=== PATIENT | male | born 1960 | race Caucasian/White ===

== ENCOUNTER 2020-01-30 10:14 | Observation (INO) ==
[2020-01-30 10:41] LABS: Basophils # 0.1 10*3/uL (0.0-0.2); Basophils % 0.4 % (0.0-0.8); Eosinophils % 0.2 % (0.00-10.9); Hematocrit 45.2 VOL% (42.0-52.0); Hemoglobin 15.7 GM/DL (14.0-18.0); Immature Granulocytes % 0.5 %; Immature Granulocytes Absolute 0.08 #; Lymphocytes # 2.6 10*3/uL (1.4-4.0); Lymphocytes % 14.9 % (21.2-54.2); Mean Corpuscular HGB Conc 34.7 GM/DL (32-36); Mean Corpuscular Volume 88.3 FL (87-102); Mean Platelet Volume 9.3 FL (9.6-12.0); Monocytes % 6.5 % (1.7-12.7); Neutrophils % 77.5 % (38.7-73.9); Platelet Count 311 T/CUMM (130-400); Red Blood Count 5.12 MC/CUMM (3.8-5.5); Red Cell Distribution Width 11.9 % (9.3-17.3); White Blood Count 17.2 T/CUMM (4-12)
[2020-01-30] MEDS ORDERED: ENOXAPARIN 100 MG/ML SYRINGE SUBCUT STA (10:44)
[2020-01-30] MEDS ORDERED: ASPIRIN 325 MG TABLET PO STA (10:44)
[2020-01-30] MEDS ORDERED: ENOXAPARIN 120 MG/0.8 ML SYRINGE SUBCUT ONE (10:53)
[2020-01-30 11:06] LABS: Albumin 3.7 G/DL (3.4-5.0); Bilirubin,Total 0.6 MG/DL (0.2-1.0); Calcium 9.7 MG/DL (8.5-10.1); Osmolality,Calculated 283.1 MOS/KG (273-304); Total Protein 7.3 G/DL (6.4-8.3)
[2020-01-30 11:38] LABS: PT Patient Result 10.3 SECS (9.8-11.9)
[2020-01-30] MEDS ORDERED: GLUCAGON 1 MG VIAL IM PRN (11:59)
[2020-01-30] MEDS ORDERED: ONDANSETRON 4 MG/2 ML VIAL IV PRN (11:59)
[2020-01-30] MEDS ORDERED: hydrALAZINE 20 MG/1 ML VIAL IV PRN (11:59)
[2020-01-30] MEDS ORDERED: ACETAMINOPHEN 325 MG TABLET PO PRN (11:59)
[2020-01-30] MEDS ORDERED: DEXTROSE 50% 25 GM/50 ML VIAL IV PRN (11:59)
[2020-01-30] MEDS ORDERED: ENOXAPARIN 40 MG/0.4 ML SYRINGE SUBCUT SCH (12:00)
[2020-01-30 12:37] LABS: Risk Ratio 6.47; Thyroid Stimulating Hormone 0.498 uIU/ml (0.358-3.74)
[2020-01-30] MEDS ORDERED: NICOTINE 21 MG/24 HR PATCH TRANSDERM PRN (13:26)
[2020-01-30] MEDS: KETOROLAC 30 MG/1 ML VIAL IV SCH ×2 (14:44→20:40)
[2020-01-30] MEDS: LIDOCAINE 5% PATCH TRANSDERM SCH (14:48)
[2020-01-30] MEDS: amLODIPine 5 MG TABLET PO SCH (14:48)
[2020-01-30] MEDS: INSULIN LISPRO 100 UNIT/ML SUBCUT SCH ×2 (17:14→21:16)
[2020-01-30] MEDS: GABAPENTIN 100 MG CAPSULE PO SCH ×2 (17:52→20:40)
[2020-01-30] MEDS ORDERED: INSULIN GLARGINE 100 UNIT/ML SUBCUT SCH ×2 (21:00)
[2020-01-31] MEDS: KETOROLAC 30 MG/1 ML VIAL IV SCH (05:08)
[2020-01-31 05:17] LABS: Basophils # 0.1 10*3/uL (0.0-0.2); Basophils % 0.4 % (0.0-0.8); Eosinophils # 0.2 10*3/uL (0.0-0.87); Eosinophils % 1.5 % (0.00-10.9); Hematocrit 39.3 VOL% (42.0-52.0); Immature Granulocytes % 0.6 %; Immature Granulocytes Absolute 0.08 #; Lymphocytes # 3.7 10*3/uL (1.4-4.0); Lymphocytes % 25.9 % (21.2-54.2); Mean Corpuscular HGB Conc 34.6 GM/DL (32-36); Mean Corpuscular Volume 90.8 FL (87-102); Mean Platelet Volume 9.8 FL (9.6-12.0); Monocytes % 7.9 % (1.7-12.7); Neutrophils % 63.7 % (38.7-73.9); Platelet Count 253 T/CUMM (130-400); Red Blood Count 4.33 MC/CUMM (3.8-5.5); Red Cell Distribution Width 12.1 % (9.3-17.3); White Blood Count 14.4 T/CUMM (4-12)
[2020-01-31 05:21] LABS: Hemoglobin 13.6 GM/DL (14.0-18.0)
[2020-01-31 05:40] LABS: Calcium 8.9 MG/DL (8.5-10.1); Osmolality,Calculated 284.2 MOS/KG (273-304)
[2020-01-31 08:42] VITALS: BP 156/75
[2020-01-31] MEDS ORDERED: ATORVASTATIN 40 MG TABLET PO SCH (09:00)
[2020-01-31] MEDS ORDERED: ATORVASTATIN 20 MG TABLET PO SCH (09:00)
[2020-01-31] MEDS ORDERED: PANTOPRAZOLE 40 MG TABLET PO SCH (09:00)
[2020-01-31] MEDS ORDERED: ASPIRIN CHEW 81 MG TABLET PO SCH (09:00)
[2020-01-31] MEDS ORDERED: FLUoxetine 20 MG CAPSULE PO SCH (09:00)
[2020-01-31] MEDS: INSULIN LISPRO 100 UNIT/ML SUBCUT SCH ×2 (09:18→11:51)
[2020-01-31] MEDS: amLODIPine 5 MG TABLET PO SCH (09:20)
[2020-01-31] MEDS: GABAPENTIN 100 MG CAPSULE PO SCH (09:20)
[2020-01-31] MEDS: LIDOCAINE 5% PATCH TRANSDERM SCH (09:21)
[2020-01-31] MEDS ORDERED: ENOXAPARIN 40 MG/0.4 ML SYRINGE SUBCUT SCH (12:00)
== END 2020-01-31 12:05 | disposition home or self-care (01) ==
LOC: N.ED 10:14 → N.EDINP 10:14 → SUATTDRO 11:33 → N.TELES 17:00
PROVIDERS: ADMIT Family Medicine; ATTEND Emergency Medicine

== ENCOUNTER 2021-01-27 12:25 | Observation (INO) ==
[2021-01-27] MEDS ORDERED: PANTOPRAZOLE 40 MG VIAL IV STA (13:07)
[2021-01-27 13:39] LABS: Basophils # 0.1 10*3/uL (0.0-0.2); Basophils % 0.7 % (0.0-0.8); Eosinophils # 0.2 10*3/uL (0.0-0.87); Eosinophils % 2.4 % (0.00-10.9); Hematocrit 31.7 VOL% (42.0-52.0); Hemoglobin 10.3 GM/DL (14.0-18.0); Immature Granulocytes % 0.6 %; Immature Granulocytes Absolute 0.06 #; Lymphocytes # 2.8 10*3/uL (1.4-4.0); Lymphocytes % 28.2 % (21.2-54.2); Mean Corpuscular HGB Conc 32.5 GM/DL (32-36); Mean Corpuscular Volume 92.4 FL (87-102); Mean Platelet Volume 9.3 FL (9.6-12.0); Neutrophils % 61.1 % (38.7-73.9); Platelet Count 304 T/CUMM (130-400); Red Blood Count 3.43 MC/CUMM (3.8-5.5); Red Cell Distribution Width 13.6 % (9.3-17.3); White Blood Count 9.8 T/CUMM (4-12)
[2021-01-27 13:49] LABS: INR 0.9; PT Patient Result 10.3 SECS (10.5-12.0)
[2021-01-27 14:06] LABS: Albumin 2.9 G/DL (3.4-5.0); Bilirubin,Total 0.4 MG/DL (0.20-1.00); Calcium 8.2 MG/DL (8.5-10.1)
[2021-01-27] MEDS ORDERED: PANTOPRAZOLE INJ 200 MG in SODIUM CHLORIDE 0.9% 250 ML IV SCH (14:30)
[2021-01-27] MEDS ORDERED: ONDANSETRON 4 MG/2 ML VIAL IV PRN (15:36)
[2021-01-27] MEDS ORDERED: ACETAMINOPHEN 325 MG TABLET PO PRN (15:36)
[2021-01-27] MEDS ORDERED: DEXTROSE 50% 25 GM/50 ML VIAL IV PRN (15:36)
[2021-01-27] MEDS ORDERED: GLUCAGON 1 MG VIAL IM PRN (15:36)
[2021-01-27] MEDS ORDERED: POTASSIUM CHLORIDE 20 MEQ TABLET PO STA (15:47)
[2021-01-27] MEDS ORDERED: POTASSIUM CHLORIDE INJ 20 MEQ in SODIUM CHLORIDE 0.9% 1,000 ML IV SCH (16:00)
[2021-01-27] MEDS: lisinopriL 10 MG TABLET PO SCH (16:37)
[2021-01-27] MEDS: INSULIN REGULAR 100 UNIT/ML SUBCUT SCH ×2 (18:10→20:50)
[2021-01-27] MEDS: SODIUM CHLOR 0.9% KCL 20 MEQ 20 MEQ/1,000 ML BAG IV SCH (18:11)
[2021-01-27] MEDS: hydrALAZINE 20 MG/1 ML VIAL IV PRN (18:11)
[2021-01-27 18:32] LABS: Hematocrit 31.6 VOL% (42.0-52.0); Hemoglobin 10.3 GM/DL (14.0-18.0)
[2021-01-27 19:32] LABS: Blood, Urine Negative (Negative); Glucose,Urine (UA) 150 mg/dL (Negative); Hyaline Casts,Urine 3 /LPF (0-3); Ketones,Urine Negative (Negative); Mucus,Urine Occasional /LPF (Occasional); Nitrite,Urine Negative (Negative); Protein,Urine 30 MG/DL; RBC,Urine 2 /HPF (0-4); Urine Appearance CLEAR (Clear); Urine Color Yellow (Yellow); Urine Specific Gravity 1.017 (1.001-1.035); Urine Urobilinogen < 2.0 EU/DL (0.2-1.0)
[2021-01-27 19:33] LABS: Bilirubin,Urine Small mg/dL (Negative)
[2021-01-27 23:33] LABS: Hemoglobin 10.2 GM/DL (14.0-18.0)
[2021-01-28 05:43] LABS: Basophils # 0.1 10*3/uL (0.0-0.2); Basophils % 0.7 % (0.0-0.8); Eosinophils # 0.3 10*3/uL (0.0-0.87); Eosinophils % 2.9 % (0.00-10.9); Hemoglobin 9.7 GM/DL (14.0-18.0); Immature Granulocytes % 0.5 %; Immature Granulocytes Absolute 0.04 #; Lymphocytes # 3.6 10*3/uL (1.4-4.0); Lymphocytes % 40.9 % (21.2-54.2); Mean Corpuscular HGB Conc 32.3 GM/DL (32-36); Mean Corpuscular Volume 93.8 FL (87-102); Mean Platelet Volume 9.3 FL (9.6-12.0); Monocytes % 9.6 % (1.7-12.7); Neutrophils % 45.4 % (38.7-73.9); Platelet Count 290 T/CUMM (130-400); Red Cell Distribution Width 13.4 % (9.3-17.3); White Blood Count 8.9 T/CUMM (4-12)
[2021-01-28 06:05] LABS: Calcium 8.2 MG/DL (8.5-10.1); Osmolality,Calculated 288.6 MOS/KG (273-304); Potassium 2.7 MMOL/L (3.5-5.1)
[2021-01-28] MEDS: INSULIN REGULAR 100 UNIT/ML SUBCUT SCH ×4 (07:48→20:57)
[2021-01-28] MEDS ORDERED: MAGNESIUM SULF RIDER 2 GM/50 ML PREMIX IV PRN (08:06)
[2021-01-28] MEDS ORDERED: MAGNESIUM SULF RIDER 4 GM/100 ML PREMIX IV PRN (08:06)
[2021-01-28] MEDS: ATORVASTATIN 20 MG TABLET PO SCH (08:38)
[2021-01-28] MEDS: PANTOPRAZOLE 40 MG TABLET PO SCH (08:38)
[2021-01-28] MEDS: FLUoxetine 20 MG CAPSULE PO SCH (08:38)
[2021-01-28] MEDS: POTASSIUM CHLORIDE 20 MEQ TABLET PO PRN ×7 (08:38→20:57)
[2021-01-28] MEDS: lisinopriL 10 MG TABLET PO SCH (08:38)
[2021-01-28] MEDS: SODIUM CHLOR 0.9% KCL 20 MEQ 20 MEQ/1,000 ML BAG IV SCH (08:54)
[2021-01-28] MEDS: oxyCODONE/ACETAMINOPHEN 5-325 MG TABLET PO PRN ×3 (09:52→23:06)
[2021-01-28] MEDS: hydrALAZINE 20 MG/1 ML VIAL IV PRN ×2 (09:52→16:08)
[2021-01-28] MEDS: NICOTINE 14 MG/24 HR PATCH TRANSDERM SCH (10:20)
[2021-01-28] MEDS ORDERED: lisinopriL 10 MG TABLET PO ONE (12:37)
[2021-01-29] MEDS: oxyCODONE/ACETAMINOPHEN 5-325 MG TABLET PO PRN (05:12)
[2021-01-29] MEDS: POTASSIUM CHLORIDE 20 MEQ TABLET PO PRN (05:12)
[2021-01-29 05:13] LABS: Basophils # 0.1 10*3/uL (0.0-0.2); Basophils % 0.7 % (0.0-0.8); Eosinophils # 0.3 10*3/uL (0.0-0.87); Eosinophils % 3.3 % (0.00-10.9); Hematocrit 31.5 VOL% (42.0-52.0); Hemoglobin 10.3 GM/DL (14.0-18.0); Immature Granulocytes % 0.5 %; Immature Granulocytes Absolute 0.04 #; Lymphocytes # 3.6 10*3/uL (1.4-4.0); Lymphocytes % 40.8 % (21.2-54.2); Mean Corpuscular HGB Conc 32.7 GM/DL (32-36); Mean Corpuscular Volume 94.3 FL (87-102); Mean Platelet Volume 9.2 FL (9.6-12.0); Monocytes % 10.1 % (1.7-12.7); Neutrophils % 44.6 % (38.7-73.9); Platelet Count 286 T/CUMM (130-400); Red Blood Count 3.34 MC/CUMM (3.8-5.5); Red Cell Distribution Width 13.5 % (9.3-17.3); White Blood Count 8.8 T/CUMM (4-12)
[2021-01-29] MEDS: hydrALAZINE 20 MG/1 ML VIAL IV PRN (05:13)
[2021-01-29 05:40] LABS: Calcium 8.1 MG/DL (8.5-10.1); Potassium 3.9 MMOL/L (3.5-5.1)
[2021-01-29] MEDS: INSULIN REGULAR 100 UNIT/ML SUBCUT SCH ×2 (08:43→12:09)
[2021-01-29] MEDS: NICOTINE 14 MG/24 HR PATCH TRANSDERM SCH (08:44)
[2021-01-29] MEDS: FLUoxetine 20 MG CAPSULE PO SCH ×2 (08:45→10:32)
[2021-01-29] MEDS: ATORVASTATIN 20 MG TABLET PO SCH ×2 (08:45→10:32)
[2021-01-29] MEDS: PANTOPRAZOLE 40 MG TABLET PO SCH ×2 (08:45→10:32)
[2021-01-29] MEDS: lisinopriL 20 MG TABLET PO SCH ×2 (08:45→10:32)
[2021-01-29 11:19] VITALS: BP 168/68
== END 2021-01-29 13:15 | disposition home or self-care (01) ==
LOC: N.EDINP 12:25 → N.ED 12:25 → N.EDINP 17:21 → N.3E 17:33
PROVIDERS: ADMIT Internal Medicine; ATTEND Internal Medicine

== ENCOUNTER 2021-09-28 11:38 | Inpatient (IN) ==
[2021-09-28 13:05] LABS: Basophils # 0.1 10*3/uL (0.0-0.2); Basophils % 0.5 % (0.0-0.8); Eosinophils # 0.3 10*3/uL (0.0-0.87); Eosinophils % 1.7 % (0.00-10.9); Hematocrit 29.7 VOL% (42.0-52.0); Immature Granulocytes % 0.6 %; Immature Granulocytes Absolute 0.09 #; Lymphocytes # 2.1 10*3/uL (1.4-4.0); Mean Corpuscular HGB Conc 30.3 GM/DL (32-36); Mean Platelet Volume 9.7 FL (9.6-12.0); Monocytes # 1.4 10*3/uL (0.11-0.8); Monocytes % 9.4 % (1.7-12.7); Neutrophils % 73.8 % (38.7-73.9); Platelet Count 333 T/CUMM (130-400); Red Blood Count 3.16 MC/CUMM (3.8-5.5); White Blood Count 14.9 T/CUMM (4-12)
[2021-09-28 13:24] LABS: Calcium 8.9 MG/DL (8.5-10.1); Osmolality,Calculated 277.1 MOS/KG (273-304); Potassium 2.8 MMOL/L (3.5-5.1)
[2021-09-28] MEDS ORDERED: POTASSIUM CHLORIDE 20 MEQ TABLET PO STA (13:27)
[2021-09-28] MEDS ORDERED: NICOTINE 21 MG/24 HR PATCH TRANSDERM PRN (13:45)
[2021-09-28 13:58] LABS: Glucose,Urine (UA) 100 mg/dL (Negative); Ketones,Urine Negative (Negative); Protein,Urine 100 mg/dL (Negative); RBC,Urine 2 /HPF (0-4); Urine Appearance Clear (Clear); Urine Color Yellow (Yellow); Urine pH 5.5 (4.5-8.0)
[2021-09-28 13:59] LABS: Bilirubin,Urine Negative (Negative); Blood, Urine Negative (Negative); Nitrite,Urine Negative (Negative); Urine Urobilinogen 0.2 eU/dL (<2.0)
[2021-09-28 14:28] LABS: Barbiturates Screen,Urine Negative (Negative); Benzodiazepines Screen,Urine Negative (Negative); Cannabinoid Screen,Urine Negative (Negative); Opiate Screen,Urine Positive (Negative); Phencyclidine Screen,Urine Negative (Negative)
[2021-09-28] MEDS ORDERED: DEXAMETHASONE 4 MG TABLET PO STA (15:16)
[2021-09-28] MEDS ORDERED: diphenhydrAMINE CAP 25 MG CAPSULE PO STA (15:16)
[2021-09-28] MEDS ORDERED: POTASSIUM CHLORIDE 20 MEQ TABLET PO ONE (15:43)
[2021-09-28] MEDS ORDERED: hydrALAZINE 20 MG/1 ML VIAL IV PRN (16:14)
[2021-09-28] MEDS ORDERED: GLUCAGON 1 MG VIAL IM PRN (16:14)
[2021-09-28] MEDS ORDERED: MAGNESIUM SULF RIDER 2 GM/50 ML PREMIX IV PRN (16:22)
[2021-09-28] MEDS ORDERED: MAGNESIUM SULF RIDER 4 GM/100 ML PREMIX IV PRN (16:22)
[2021-09-28] MEDS ORDERED: DEXTROSE 10% 250 ML BAG IV PRN (16:24)
[2021-09-28] MEDS: INSULIN LISPRO 100 UNIT/ML SUBCUT SCH ×2 (17:03→21:22)
[2021-09-28 17:11] LABS: Vitamin B12 319 PG/ML (211-911)
[2021-09-28] MEDS ORDERED: POTASSIUM CHLORIDE INJ 40 MEQ in SODIUM CHLORIDE 0.45% 1,000 ML IV SCH (18:00)
[2021-09-28] MEDS: METHOCARBAMOL 750 MG TABLET PO SCH (18:54)
[2021-09-28] MEDS ORDERED: NON-FORMULARY MEDICATION (Insulin Glargine [Lantus Solostar U-100 Insulin] 100 unit/mL (3 SUBCUT SCH (21:00)
[2021-09-28] MEDS: GABAPENTIN 300 MG CAPSULE PO SCH (21:21)
[2021-09-28] MEDS: DOCUSATE SODIUM 100 MG CAPSULE PO PRN (21:21)
[2021-09-28] MEDS: FLUDROCORTISONE 0.1 MG TABLET PO SCH (21:21)
[2021-09-29] MEDS: METHOCARBAMOL 750 MG TABLET PO SCH ×4 (00:24→23:49)
[2021-09-29] MEDS: ACETAMINOPHEN 325 MG TABLET PO PRN (00:26)
[2021-09-29 05:31] LABS: Basophils % 0.2 % (0.0-0.8); Hematocrit 27.2 VOL% (42.0-52.0); Hemoglobin 8.4 GM/DL (14.0-18.0); Immature Granulocytes % 0.5 %; Immature Granulocytes Absolute 0.07 #; Lymphocytes # 1.3 10*3/uL (1.4-4.0); Lymphocytes % 9.9 % (21.2-54.2); Mean Corpuscular HGB Conc 30.9 GM/DL (32-36); Mean Corpuscular Volume 91.3 FL (87-102); Mean Platelet Volume 10.1 FL (9.6-12.0); Monocytes % 7.5 % (1.7-12.7); Neutrophils % 81.9 % (38.7-73.9); Platelet Count 325 T/CUMM (130-400); Red Blood Count 2.98 MC/CUMM (3.8-5.5); Red Cell Distribution Width 14.7 % (9.3-17.3); White Blood Count 12.9 T/CUMM (4-12)
[2021-09-29 05:49] LABS: Calcium 8.6 MG/DL (8.5-10.1); Osmolality,Calculated 288.3 MOS/KG (273-304); Potassium 3.6 MMOL/L (3.5-5.1)
[2021-09-29 05:50] LABS: Risk Ratio 2.27
[2021-09-29] MEDS ORDERED: IMIPRAMINE 25 MG TABLET PO SCH (09:00)
[2021-09-29] MEDS ORDERED: LINAGLIPTIN 5 MG PO SCH (09:00)
[2021-09-29] MEDS: INSULIN LISPRO 100 UNIT/ML SUBCUT SCH ×4 (09:31→21:04)
[2021-09-29] MEDS: ATORVASTATIN 40 MG TABLET PO SCH (09:32)
[2021-09-29] MEDS: FLUoxetine 20 MG CAPSULE PO SCH (09:32)
[2021-09-29] MEDS: GABAPENTIN 300 MG CAPSULE PO SCH ×2 (09:32→21:04)
[2021-09-29] MEDS: ASPIRIN EC 81 MG TABLET PO SCH (09:32)
[2021-09-29] MEDS: FLUDROCORTISONE 0.1 MG TABLET PO SCH ×2 (09:32→21:05)
[2021-09-29] MEDS: NICOTINE 21 MG/24 HR PATCH TRANSDERM PRN (11:59)
[2021-09-30 06:10] LABS: Basophils # 0.1 10*3/uL (0.0-0.2); Basophils % 0.4 % (0.0-0.8); Eosinophils # 0.1 10*3/uL (0.0-0.87); Eosinophils % 0.7 % (0.00-10.9); Hematocrit 25.1 VOL% (42.0-52.0); Hemoglobin 7.8 GM/DL (14.0-18.0); Immature Granulocytes % 0.5 %; Immature Granulocytes Absolute 0.07 #; Lymphocytes # 2.1 10*3/uL (1.4-4.0); Lymphocytes % 13.9 % (21.2-54.2); Mean Corpuscular HGB Conc 31.1 GM/DL (32-36); Mean Corpuscular Volume 91.3 FL (87-102); Mean Platelet Volume 10.1 FL (9.6-12.0); Monocytes # 1.9 10*3/uL (0.11-0.8); Monocytes % 12.4 % (1.7-12.7); Neutrophils % 72.1 % (38.7-73.9); Platelet Count 308 T/CUMM (130-400); Red Blood Count 2.75 MC/CUMM (3.8-5.5); Red Cell Distribution Width 15.3 % (9.3-17.3); White Blood Count 15.1 T/CUMM (4-12)
[2021-09-30 06:29] LABS: Albumin 2.1 G/DL (3.4-5.0); Bilirubin,Total 0.4 MG/DL (0.20-1.00); Calcium 8.5 MG/DL (8.5-10.1); Osmolality,Calculated 276.8 MOS/KG (273-304); Potassium 3.6 MMOL/L (3.5-5.1); Total Protein 5.7 G/DL (6.4-8.2)
[2021-09-30] MEDS: ASPIRIN EC 81 MG TABLET PO SCH (08:46)
[2021-09-30] MEDS: FLUoxetine 20 MG CAPSULE PO SCH (08:46)
[2021-09-30] MEDS: GABAPENTIN 300 MG CAPSULE PO SCH ×2 (08:46→21:25)
[2021-09-30] MEDS: ATORVASTATIN 40 MG TABLET PO SCH (08:46)
[2021-09-30] MEDS: FLUDROCORTISONE 0.1 MG TABLET PO SCH ×2 (08:46→21:25)
[2021-09-30] MEDS: METHOCARBAMOL 750 MG TABLET PO SCH ×2 (08:46→16:15)
[2021-09-30] MEDS: INSULIN LISPRO 100 UNIT/ML SUBCUT SCH ×4 (08:46→21:25)
[2021-09-30] MEDS: NICOTINE 21 MG/24 HR PATCH TRANSDERM PRN ×2 (08:50→23:53)
[2021-09-30] MEDS: CHOLECALCIFEROL 5,000 UNIT TABLET PO SCH (21:25)
[2021-09-30] MEDS: ACETAMINOPHEN 325 MG TABLET PO PRN (23:50)
[2021-10-01] MEDS: METHOCARBAMOL 750 MG TABLET PO SCH ×3 (02:05→17:37)
[2021-10-01] MEDS: NICOTINE 21 MG/24 HR PATCH TRANSDERM PRN (07:43)
[2021-10-01] MEDS: DOCUSATE SODIUM 100 MG CAPSULE PO PRN (08:16)
[2021-10-01] MEDS: ASPIRIN EC 81 MG TABLET PO SCH (08:16)
[2021-10-01] MEDS: GABAPENTIN 300 MG CAPSULE PO SCH ×2 (08:16→20:05)
[2021-10-01] MEDS: ATORVASTATIN 40 MG TABLET PO SCH (08:16)
[2021-10-01] MEDS: FLUDROCORTISONE 0.1 MG TABLET PO SCH ×2 (08:17→20:05)
[2021-10-01] MEDS: FLUoxetine 20 MG CAPSULE PO SCH (08:17)
[2021-10-01] MEDS: CHOLECALCIFEROL 5,000 UNIT TABLET PO SCH ×2 (08:17→20:05)
[2021-10-01] MEDS: INSULIN LISPRO 100 UNIT/ML SUBCUT SCH ×4 (09:46→22:00)
[2021-10-01] MEDS: oxyCODONE/ACETAMINOPHEN 5-325 MG TABLET PO PRN ×2 (11:13→20:05)
[2021-10-01 13:51] LABS: Myeloperoxidase Antibody < 0.2 U
[2021-10-01 23:37] LABS: Bilirubin,Urine Negative (Negative); Blood, Urine Trace mg/dL (Negative); Glucose,Urine (UA) Negative (Negative); Hyaline Casts,Urine 3 /LPF (0-3); Ketones,Urine Negative (Negative); Mucus,Urine Occasional /LPF (Occasional); Nitrite,Urine Negative (Negative); Protein,Urine 100 mg/dL (Negative); RBC,Urine 4 /HPF (0-4); Urine Appearance Clear (Clear); Urine Color Yellow (Yellow); Urine Urobilinogen 0.2 eU/dL (<2.0); Urine pH 5.5 (4.5-8.0)
[2021-10-02] MEDS: METHOCARBAMOL 750 MG TABLET PO SCH ×3 (01:35→16:54)
[2021-10-02 05:38] LABS: Basophils % 0.5 % (0.0-0.8); Eosinophils # 0.2 10*3/uL (0.0-0.87); Eosinophils % 2.4 % (0.00-10.9); Hemoglobin 8.2 GM/DL (14.0-18.0); Immature Granulocytes % 0.6 %; Immature Granulocytes Absolute 0.05 #; Lymphocytes # 1.6 10*3/uL (1.4-4.0); Lymphocytes % 18.6 % (21.2-54.2); Mean Corpuscular HGB Conc 31.5 GM/DL (32-36); Mean Corpuscular Volume 91.2 FL (87-102); Mean Platelet Volume 10.3 FL (9.6-12.0); Monocytes % 11.5 % (1.7-12.7); Neutrophils % 66.4 % (38.7-73.9); Platelet Count 261 T/CUMM (130-400); Red Blood Count 2.85 MC/CUMM (3.8-5.5); Red Cell Distribution Width 15.1 % (9.3-17.3); White Blood Count 8.4 T/CUMM (4-12)
[2021-10-02 05:52] LABS: Albumin 2.1 G/DL (3.4-5.0); Bilirubin,Total 0.5 MG/DL (0.20-1.00); Calcium 8.4 MG/DL (8.5-10.1); Potassium 2.7 MMOL/L (3.5-5.1); Total Protein 5.7 G/DL (6.4-8.2)
[2021-10-02] MEDS: FLUDROCORTISONE 0.1 MG TABLET PO SCH ×2 (09:34→20:14)
[2021-10-02] MEDS: NICOTINE 21 MG/24 HR PATCH TRANSDERM PRN (09:34)
[2021-10-02] MEDS: FLUoxetine 20 MG CAPSULE PO SCH (09:34)
[2021-10-02] MEDS: POTASSIUM CHLORIDE 20 MEQ TABLET PO PRN ×4 (09:35→16:54)
[2021-10-02] MEDS: oxyCODONE/ACETAMINOPHEN 5-325 MG TABLET PO PRN ×3 (09:35→22:31)
[2021-10-02] MEDS: GABAPENTIN 300 MG CAPSULE PO SCH ×2 (09:35→20:15)
[2021-10-02] MEDS: ATORVASTATIN 40 MG TABLET PO SCH (09:38)
[2021-10-02] MEDS: ASPIRIN EC 81 MG TABLET PO SCH (09:38)
[2021-10-02] MEDS: INSULIN LISPRO 100 UNIT/ML SUBCUT SCH ×4 (09:40→21:04)
[2021-10-02 10:00] LABS: Eosinophils 1 % (0-10); Lymphocytes 24 % (20-55); Total Cells Counted 100
[2021-10-02 10:01] LABS: Hypochromia Slight; Ovalocytes Few; Platelet Estimate Normal
[2021-10-02] MEDS ORDERED: POTASSIUM CHLORIDE 20 MEQ TABLET PO ONE ×2 (10:27→14:36)
[2021-10-02 10:52] LABS: % Iron Saturation 6.1 % (18-50); Ferritin 120.8 ng/mL (26-388)
[2021-10-02 10:56] LABS: Folate 10.84 NG/ML (5.38-24.0)
[2021-10-02] MEDS: CHOLECALCIFEROL 5,000 UNIT TABLET PO SCH ×2 (12:21→20:14)
[2021-10-02] MEDS: FERRIC GLUCONATE COMPLEX 125 MG in SODIUM CHLORIDE 0.9% 100 ML IV SCH (16:55)
[2021-10-03] MEDS: METHOCARBAMOL 750 MG TABLET PO SCH ×3 (00:06→16:54)
[2021-10-03] MEDS: POTASSIUM CHLORIDE 20 MEQ TABLET PO PRN ×4 (00:54→09:21)
[2021-10-03] MEDS: oxyCODONE/ACETAMINOPHEN 5-325 MG TABLET PO PRN ×4 (03:19→21:32)
[2021-10-03 05:41] LABS: Basophils # 0.1 10*3/uL (0.0-0.2); Basophils % 0.7 % (0.0-0.8); Eosinophils # 0.2 10*3/uL (0.0-0.87); Eosinophils % 2.5 % (0.00-10.9); Hematocrit 23.4 VOL% (42.0-52.0); Hemoglobin 7.3 GM/DL (14.0-18.0); Immature Granulocytes % 0.4 %; Immature Granulocytes Absolute 0.03 #; Lymphocytes # 1.9 10*3/uL (1.4-4.0); Lymphocytes % 28.7 % (21.2-54.2); Mean Corpuscular HGB Conc 31.2 GM/DL (32-36); Mean Corpuscular Volume 90.3 FL (87-102); Mean Platelet Volume 10.4 FL (9.6-12.0); Monocytes % 14.6 % (1.7-12.7); Neutrophils % 53.1 % (38.7-73.9); Platelet Count 271 T/CUMM (130-400); Red Blood Count 2.59 MC/CUMM (3.8-5.5); Red Cell Distribution Width 15.3 % (9.3-17.3); White Blood Count 6.8 T/CUMM (4-12)
[2021-10-03 05:50] LABS: Calcium 8.4 MG/DL (8.5-10.1); Osmolality,Calculated 277.7 MOS/KG (273-304); Potassium 3.6 MMOL/L (3.5-5.1)
[2021-10-03 07:26] LABS: Eosinophils 1 % (0-10); Lymphocytes 29 % (20-55); Total Cells Counted 100
[2021-10-03 07:27] LABS: Platelet Estimate Normal
[2021-10-03] MEDS: FERRIC GLUCONATE COMPLEX 125 MG in SODIUM CHLORIDE 0.9% 100 ML IV SCH (08:38)
[2021-10-03] MEDS: FLUoxetine 20 MG CAPSULE PO SCH (08:39)
[2021-10-03] MEDS: GABAPENTIN 300 MG CAPSULE PO SCH ×2 (08:39→23:42)
[2021-10-03] MEDS: FLUDROCORTISONE 0.1 MG TABLET PO SCH ×2 (08:39→21:32)
[2021-10-03] MEDS: ASPIRIN EC 81 MG TABLET PO SCH (08:39)
[2021-10-03] MEDS: ATORVASTATIN 40 MG TABLET PO SCH (08:39)
[2021-10-03] MEDS: CHOLECALCIFEROL 5,000 UNIT TABLET PO SCH ×2 (08:40→21:32)
[2021-10-03] MEDS: INSULIN LISPRO 100 UNIT/ML SUBCUT SCH ×4 (08:40→21:44)
[2021-10-03] MEDS ORDERED: SODIUM CHLORIDE 0.9% 1,000 ML IV PRN (11:42)
[2021-10-03] MEDS: NICOTINE 21 MG/24 HR PATCH TRANSDERM PRN (13:30)
[2021-10-03 14:16] LABS: Ehrlichia Chaffeensis (HME)IgG <1:64 titer (<1:64)
[2021-10-04] MEDS: METHOCARBAMOL 750 MG TABLET PO SCH ×2 (00:16→08:17)
[2021-10-04] MEDS ORDERED: LORazepam 2 MG/1 ML VIAL IV ONE (03:44)
[2021-10-04] MEDS ORDERED: ALPRAZolam 0.5 MG TABLET PO PRN (03:45)
[2021-10-04 06:22] LABS: Basophils # 0.1 10*3/uL (0.0-0.2); Basophils % 0.5 % (0.0-0.8); Eosinophils # 0.2 10*3/uL (0.0-0.87); Hematocrit 34.2 VOL% (42.0-52.0); Hemoglobin 10.8 GM/DL (14.0-18.0); Immature Granulocytes % 0.6 %; Lymphocytes # 1.7 10*3/uL (1.4-4.0); Lymphocytes % 9.5 % (21.2-54.2); Mean Corpuscular HGB Conc 31.6 GM/DL (32-36); Mean Corpuscular Volume 91.7 FL (87-102); Mean Platelet Volume 9.7 FL (9.6-12.0); Monocytes # 1.2 10*3/uL (0.11-0.8); Monocytes % 6.5 % (1.7-12.7); Neutrophils % 81.9 % (38.7-73.9); Platelet Count 363 T/CUMM (130-400); Red Blood Count 3.73 MC/CUMM (3.8-5.5); Red Cell Distribution Width 14.9 % (9.3-17.3); White Blood Count 17.7 T/CUMM (4-12)
[2021-10-04 06:41] LABS: Calcium 9.2 MG/DL (8.5-10.1); Osmolality,Calculated 276.5 MOS/KG (273-304); Potassium 4.3 MMOL/L (3.5-5.1)
[2021-10-04] MEDS: INSULIN LISPRO 100 UNIT/ML SUBCUT SCH ×2 (06:46→12:32)
[2021-10-04] MEDS: FLUDROCORTISONE 0.1 MG TABLET PO SCH (08:17)
[2021-10-04] MEDS: CHOLECALCIFEROL 5,000 UNIT TABLET PO SCH (08:17)
[2021-10-04] MEDS: FLUoxetine 20 MG CAPSULE PO SCH (08:17)
[2021-10-04] MEDS: oxyCODONE/ACETAMINOPHEN 5-325 MG TABLET PO PRN (08:18)
[2021-10-04] MEDS: ASPIRIN EC 81 MG TABLET PO SCH (08:18)
[2021-10-04] MEDS: GABAPENTIN 300 MG CAPSULE PO SCH (08:18)
[2021-10-04] MEDS: ATORVASTATIN 40 MG TABLET PO SCH (08:18)
[2021-10-04] MEDS: FERRIC GLUCONATE COMPLEX 125 MG in SODIUM CHLORIDE 0.9% 100 ML IV SCH (08:19)
[2021-10-04 12:20] VITALS: BP 134/54
== END 2021-10-04 15:48 | disposition home or self-care (01) | DRG 312 ==
LOC: N.ED 11:38 → SUATTDRO 16:14 → N.EDINP 16:14 → N.3E 17:16
PROVIDERS: ADMIT Internal Medicine; ATTEND Internal Medicine

== ENCOUNTER 2022-03-01 16:43 | Inpatient (IN) ==
[2022-03-01] MEDS ORDERED: PIPERACILLIN/TAZOBACTAM 3,375 MG in SODIUM CHLORIDE 0.9% 100 ML IV STA (20:31)
[2022-03-01 21:58] LABS: Basophils % 0.2 % (0.0-0.8); Eosinophils # 0.1 10*3/uL (0.0-0.87); Eosinophils % 0.6 % (0.00-10.9); Hematocrit 31.4 VOL% (42.0-52.0); Hemoglobin 9.7 GM/DL (14.0-18.0); Immature Granulocytes % 3.4 %; Immature Granulocytes Absolute 0.54 #; Lymphocytes # 1.6 10*3/uL (1.4-4.0); Lymphocytes % 9.9 % (21.2-54.2); Mean Corpuscular HGB Conc 30.9 GM/DL (32-36); Mean Platelet Volume 10.2 FL (9.6-12.0); Monocytes # 1.4 10*3/uL (0.11-0.8); Monocytes % 8.8 % (1.7-12.7); Neutrophils % 77.1 % (38.7-73.9); Platelet Count 314 T/CUMM (130-400); Red Blood Count 3.27 MC/CUMM (3.8-5.5); White Blood Count 16.1 T/CUMM (4-12)
[2022-03-01] MEDS ORDERED: ONDANSETRON 4 MG/2 ML VIAL IV STA (22:04)
[2022-03-01] MEDS ORDERED: HYDROmorphone 1 MG/1 ML SYRINGE IV ONE (22:04)
[2022-03-01 22:21] LABS: Alanine Aminotransferase 13 U/L (16-61); Albumin 2.4 G/DL (3.4-5.0); Alkaline Phosphatase 92 U/L (45-117); Aspartate Amino Transferase 15 U/L (0-37); Bilirubin,Total < 0.39 MG/DL (0.20-1.00); Blood Urea Nitrogen 34 MG/DL (7-18); Calcium 9.1 MG/DL (8.5-10.1); Carbon Dioxide 19 MMOL/L (21-32); Chloride 108 MMOL/L (98-107); Glucose 194 MG/DL (74-106); Lymphocytes 10 % (20-55); Osmolality,Calculated 282.1 MOS/KG (273-304); Platelet Estimate Adequate; Potassium 4.1 MMOL/L (3.5-5.1); Sodium 135 MMOL/L (136-145); Total Cells Counted 100; Total Protein 7.1 G/DL (6.4-8.2)
[2022-03-02] MEDS ORDERED: ONDANSETRON 4 MG/2 ML VIAL IV PRN (01:19)
[2022-03-02] MEDS ORDERED: ACETAMINOPHEN 325 MG TABLET PO PRN (01:19)
[2022-03-02] MEDS ORDERED: SODIUM CHLORIDE 0.9% 1,000 ML IV SCH (01:19)
[2022-03-02] MEDS ORDERED: GLUCAGON 1 MG VIAL IM PRN ×2 (01:19→17:21)
[2022-03-02] MEDS ORDERED: DEXTROSE 10% 250 ML BAG IV PRN ×2 (01:23→07:20)
[2022-03-02] MEDS: HYDROmorphone 1 MG/1 ML SYRINGE IV PRN ×3 (02:00→17:57)
[2022-03-02] MEDS: INSULIN REGULAR 100 UNIT/ML SUBCUT SCH ×6 (02:15→21:20)
[2022-03-02 04:29] LABS: Basophils # 0.1 10*3/uL (0.0-0.2); Basophils % 0.3 % (0.0-0.8); Eosinophils # 0.2 10*3/uL (0.0-0.87); Eosinophils % 1.2 % (0.00-10.9); Hematocrit 32.3 VOL% (42.0-52.0); Hemoglobin 9.9 GM/DL (14.0-18.0); Immature Granulocytes % 1.2 %; Immature Granulocytes Absolute 0.17 #; Lymphocytes % 13.5 % (21.2-54.2); Mean Corpuscular HGB Conc 30.7 GM/DL (32-36); Mean Corpuscular Volume 96.7 FL (87-102); Mean Platelet Volume 9.5 FL (9.6-12.0); Monocytes % 6.5 % (1.7-12.7); Neutrophils % 77.3 % (38.7-73.9); Platelet Count 315 T/CUMM (130-400); Red Blood Count 3.34 MC/CUMM (3.8-5.5); Red Cell Distribution Width 15.9 % (9.3-17.3); White Blood Count 14.6 T/CUMM (4-12)
[2022-03-02 04:50] LABS: Alanine Aminotransferase 12 U/L (16-61); Albumin 2.4 G/DL (3.4-5.0); Alkaline Phosphatase 98 U/L (45-117); Aspartate Amino Transferase 6 U/L (0-37); Bilirubin,Total < 0.39 MG/DL (0.20-1.00); Blood Urea Nitrogen 32 MG/DL (7-18); Calcium 9.3 MG/DL (8.5-10.1); Carbon Dioxide 18 MMOL/L (21-32); Chloride 110 MMOL/L (98-107); Glucose 137 MG/DL (74-106); Osmolality,Calculated 281.8 MOS/KG (273-304); Potassium 3.7 MMOL/L (3.5-5.1); Sodium 137 MMOL/L (136-145)
[2022-03-02] MEDS: PIPERACILLIN/TAZOBACTAM 3,375 MG in SODIUM CHLORIDE 0.9% 100 ML IV SCH ×2 (06:05→17:19)
[2022-03-02] MEDS: LACTATED RINGERS 1,000 ML IV SCH ×2 (07:45→23:53)
[2022-03-02] MEDS ORDERED: METHOCARBAMOL 750 MG TABLET PO PRN (08:27)
[2022-03-02] MEDS ORDERED: NICOTINE 21 MG/24 HR PATCH TRANSDERM PRN (08:30)
[2022-03-02] MEDS ORDERED: BISACODYL 5 MG TABLET PO PRN (08:30)
[2022-03-02] MEDS ORDERED: VANCOMYCIN INJ 2,000 MG in SODIUM CHLORIDE 0.9% 500 ML IV ONE (09:00)
[2022-03-02] MEDS ORDERED: PANTOPRAZOLE 40 MG VIAL IV SCH (09:00)
[2022-03-02] MEDS: PANTOPRAZOLE 40 MG TABLET PO SCH ×2 (09:03→21:05)
[2022-03-02] MEDS: ATORVASTATIN 40 MG TABLET PO SCH (09:03)
[2022-03-02] MEDS: GABAPENTIN 300 MG CAPSULE PO SCH ×3 (09:03→21:05)
[2022-03-02] MEDS: SACUBITRIL/VALSARTAN 49-51 MG TABLET PO SCH ×2 (09:03→21:04)
[2022-03-02] MEDS: carvediloL 3.125 MG TABLET PO SCH ×2 (09:03→21:05)
[2022-03-02] MEDS ORDERED: HYDROmorphone 1 MG/1 ML SYRINGE IV STA (09:38)
[2022-03-02] MEDS ORDERED: propofoL 200 MG/20 ML VIAL IV ONE ×2 (10:35→10:38)
[2022-03-02] MEDS ORDERED: SODIUM CHLORIDE 0.9% 250 ML IV ONE (10:35)
[2022-03-02] MEDS ORDERED: LIDOCAINE 2% 5 ML VIAL ONE ×2 (10:35→10:36)
[2022-03-02] MEDS ORDERED: MIDAZOLAM 2 MG/2 ML VIAL ONE (10:35)
[2022-03-02] MEDS ORDERED: fentaNYL 100 MCG/2 ML VIAL ONE (10:35)
[2022-03-02] MEDS ORDERED: ETOMIDATE 40 MG/20 ML VIAL IV ONE (10:35)
[2022-03-02] MEDS ORDERED: BUPIVACAINE MPF 0.5% 30 ML VIAL ONE (10:36)
[2022-03-02] MEDS ORDERED: LIDOCAINE 1% 5 ML VIAL ONE ×2 (10:36→10:55)
[2022-03-02] MEDS: FLUoxetine 20 MG CAPSULE PO SCH (15:26)
[2022-03-02] MEDS ORDERED: DEXTROSE 50% 25 GM/50 ML VIAL IV PRN (17:21)
[2022-03-02] MEDS: VANCOMYCIN INJ 1,250 MG in SODIUM CHLORIDE 0.9% 250 ML IV SCH (21:20)
[2022-03-03] MEDS: HYDROmorphone 1 MG/1 ML SYRINGE IV PRN ×5 (00:15→17:27)
[2022-03-03] MEDS: PIPERACILLIN/TAZOBACTAM 3,375 MG in SODIUM CHLORIDE 0.9% 100 ML IV SCH ×2 (00:30→12:12)
[2022-03-03 07:30] LABS: Basophils % 0.2 % (0.0-0.8); Eosinophils # 0.1 10*3/uL (0.0-0.87); Eosinophils % 0.7 % (0.00-10.9); Hematocrit 28.5 VOL% (42.0-52.0); Hemoglobin 8.7 GM/DL (14.0-18.0); Immature Granulocytes % 0.6 %; Immature Granulocytes Absolute 0.06 #; Lymphocytes # 1.6 10*3/uL (1.4-4.0); Lymphocytes % 16.4 % (21.2-54.2); Mean Corpuscular HGB Conc 30.5 GM/DL (32-36); Mean Platelet Volume 9.6 FL (9.6-12.0); Monocytes # 1.1 10*3/uL (0.11-0.8); Monocytes % 10.7 % (1.7-12.7); Neutrophils % 71.4 % (38.7-73.9); Platelet Count 335 T/CUMM (130-400); Red Blood Count 2.88 MC/CUMM (3.8-5.5); Red Cell Distribution Width 15.8 % (9.3-17.3)
[2022-03-03 07:59] LABS: Calcium 9.1 MG/DL (8.5-10.1); Osmolality,Calculated 282.5 MOS/KG (273-304); Potassium 3.7 MMOL/L (3.5-5.1); Risk Ratio 2.85; VLDL Cholesterol 22.4 MG/DL
[2022-03-03 08:00] LABS: % Iron Saturation 5.1 % (18-50); Ferritin 216.4 ng/mL (26-388)
[2022-03-03] MEDS: carvediloL 3.125 MG TABLET PO SCH (08:23)
[2022-03-03] MEDS: PANTOPRAZOLE 40 MG TABLET PO SCH ×2 (08:23→20:47)
[2022-03-03] MEDS: SACUBITRIL/VALSARTAN 49-51 MG TABLET PO SCH ×2 (08:23→20:46)
[2022-03-03] MEDS: GABAPENTIN 300 MG CAPSULE PO SCH ×3 (08:23→20:46)
[2022-03-03] MEDS: ATORVASTATIN 40 MG TABLET PO SCH (08:24)
[2022-03-03] MEDS: VANCOMYCIN INJ 1,250 MG in SODIUM CHLORIDE 0.9% 250 ML IV SCH ×2 (08:25→21:30)
[2022-03-03] MEDS: FLUoxetine 20 MG CAPSULE PO SCH (08:25)
[2022-03-03] MEDS: INSULIN REGULAR 100 UNIT/ML SUBCUT SCH ×4 (10:03→20:47)
[2022-03-03] MEDS: FERRIC GLUCONATE COMPLEX 125 MG in SODIUM CHLORIDE 0.9% 100 ML IV SCH (10:14)
[2022-03-03] MEDS: SODIUM HYPOCHLORITE 0.25% IRRIG 473 ML BOTTLE TOP SCH (11:57)
[2022-03-03] MEDS: LACTATED RINGERS 1,000 ML IV SCH ×2 (15:38→17:00)
[2022-03-04] MEDS: PIPERACILLIN/TAZOBACTAM 3,375 MG in SODIUM CHLORIDE 0.9% 100 ML IV SCH ×4 (01:47→21:00)
[2022-03-04] MEDS: carvediloL 3.125 MG TABLET PO SCH ×3 (01:52→20:47)
[2022-03-04] MEDS: HYDROmorphone 1 MG/1 ML SYRINGE IV PRN ×3 (03:20→20:48)
[2022-03-04 05:07] LABS: Basophils % 0.3 % (0.0-0.8); Eosinophils # 0.2 10*3/uL (0.0-0.87); Eosinophils % 1.8 % (0.00-10.9); Hematocrit 28.8 VOL% (42.0-52.0); Hemoglobin 8.7 GM/DL (14.0-18.0); Immature Granulocytes % 0.6 %; Immature Granulocytes Absolute 0.06 #; Lymphocytes # 1.7 10*3/uL (1.4-4.0); Lymphocytes % 16.9 % (21.2-54.2); Mean Corpuscular HGB Conc 30.2 GM/DL (32-36); Mean Corpuscular Volume 97.3 FL (87-102); Mean Platelet Volume 9.7 FL (9.6-12.0); Monocytes # 1.1 10*3/uL (0.11-0.8); Monocytes % 10.8 % (1.7-12.7); Neutrophils % 69.6 % (38.7-73.9); Platelet Count 353 T/CUMM (130-400); Red Blood Count 2.96 MC/CUMM (3.8-5.5); Red Cell Distribution Width 15.6 % (9.3-17.3); White Blood Count 9.8 T/CUMM (4-12)
[2022-03-04 05:52] LABS: Calcium 9.2 MG/DL (8.5-10.1); Osmolality,Calculated 279.5 MOS/KG (273-304); Potassium 3.7 MMOL/L (3.5-5.1)
[2022-03-04] MEDS: ATORVASTATIN 40 MG TABLET PO SCH ×2 (08:48→10:30)
[2022-03-04] MEDS: SODIUM HYPOCHLORITE 0.25% IRRIG 473 ML BOTTLE TOP SCH ×2 (08:48→12:36)
[2022-03-04] MEDS: INSULIN REGULAR 100 UNIT/ML SUBCUT SCH ×5 (08:48→20:46)
[2022-03-04] MEDS: SACUBITRIL/VALSARTAN 49-51 MG TABLET PO SCH ×3 (08:48→20:46)
[2022-03-04] MEDS: PANTOPRAZOLE 40 MG TABLET PO SCH ×3 (08:49→20:47)
[2022-03-04] MEDS: GABAPENTIN 300 MG CAPSULE PO SCH ×4 (08:49→20:47)
[2022-03-04] MEDS: FLUoxetine 20 MG CAPSULE PO SCH ×2 (08:49→10:30)
[2022-03-04] MEDS ORDERED: MAGNESIUM SULF RIDER 2 GM/50 ML PREMIX IV ONE (09:05)
[2022-03-04] MEDS: FERRIC GLUCONATE COMPLEX 125 MG in SODIUM CHLORIDE 0.9% 100 ML IV SCH (10:31)
[2022-03-04] MEDS: LACTATED RINGERS 1,000 ML IV SCH ×2 (11:41→14:26)
[2022-03-04] MEDS ORDERED: LIDOCAINE 2% 5 ML VIAL ONE ×2 (11:53→11:58)
[2022-03-04] MEDS ORDERED: BUPIVACAINE MPF 0.5% 30 ML VIAL ONE (11:53)
[2022-03-04] MEDS ORDERED: LIDOCAINE 1% 5 ML VIAL ONE (11:53)
[2022-03-04] MEDS ORDERED: ETOMIDATE 40 MG/20 ML VIAL IV ONE (11:58)
[2022-03-04] MEDS ORDERED: MIDAZOLAM 2 MG/2 ML VIAL ONE (11:59)
[2022-03-04] MEDS ORDERED: fentaNYL 100 MCG/2 ML VIAL ONE (12:00)
[2022-03-04] MEDS: VANCOMYCIN INJ 1,250 MG in SODIUM CHLORIDE 0.9% 250 ML IV SCH (12:37)
[2022-03-05] MEDS: HYDROmorphone 1 MG/1 ML SYRINGE IV PRN ×6 (01:00→22:34)
[2022-03-05] MEDS: VANCOMYCIN INJ 1,250 MG in SODIUM CHLORIDE 0.9% 250 ML IV SCH ×2 (01:39→22:36)
[2022-03-05] MEDS: PIPERACILLIN/TAZOBACTAM 3,375 MG in SODIUM CHLORIDE 0.9% 100 ML IV SCH ×3 (05:30→20:36)
[2022-03-05 05:51] LABS: Basophils # 0.1 10*3/uL (0.0-0.2); Basophils % 0.5 % (0.0-0.8); Eosinophils # 0.2 10*3/uL (0.0-0.87); Hemoglobin 7.8 GM/DL (14.0-18.0); Immature Granulocytes % 0.8 %; Immature Granulocytes Absolute 0.07 #; Lymphocytes # 1.7 10*3/uL (1.4-4.0); Lymphocytes % 18.1 % (21.2-54.2); Mean Corpuscular Volume 95.2 FL (87-102); Mean Platelet Volume 10.1 FL (9.6-12.0); Monocytes # 1.4 10*3/uL (0.11-0.8); Monocytes % 14.7 % (1.7-12.7); Neutrophils % 63.9 % (38.7-73.9); Platelet Count 322 T/CUMM (130-400); Red Blood Count 2.73 MC/CUMM (3.8-5.5); Red Cell Distribution Width 15.5 % (9.3-17.3); White Blood Count 9.3 T/CUMM (4-12)
[2022-03-05 06:16] LABS: Calcium 8.2 MG/DL (8.5-10.1); Osmolality,Calculated 284.5 MOS/KG (273-304); Potassium 3.1 MMOL/L (3.5-5.1)
[2022-03-05] MEDS: GABAPENTIN 300 MG CAPSULE PO SCH ×3 (08:15→20:37)
[2022-03-05] MEDS: FLUoxetine 20 MG CAPSULE PO SCH (08:15)
[2022-03-05] MEDS: carvediloL 3.125 MG TABLET PO SCH ×2 (08:15→20:38)
[2022-03-05] MEDS: ATORVASTATIN 40 MG TABLET PO SCH (08:15)
[2022-03-05] MEDS: PANTOPRAZOLE 40 MG TABLET PO SCH ×2 (08:15→20:38)
[2022-03-05] MEDS: LACTATED RINGERS 1,000 ML IV SCH ×3 (10:02→16:45)
[2022-03-05] MEDS: SODIUM HYPOCHLORITE 0.25% IRRIG 473 ML BOTTLE TOP SCH (10:11)
[2022-03-05] MEDS: POTASSIUM CHLORIDE 20 MEQ TABLET PO SCH ×2 (10:11→12:32)
[2022-03-05] MEDS: FERRIC GLUCONATE COMPLEX 125 MG in SODIUM CHLORIDE 0.9% 100 ML IV SCH (10:11)
[2022-03-05] MEDS: INSULIN REGULAR 100 UNIT/ML SUBCUT SCH ×4 (10:11→20:52)
[2022-03-05] MEDS: SACUBITRIL/VALSARTAN 49-51 MG TABLET PO SCH ×2 (10:11→20:37)
[2022-03-06] MEDS: LACTATED RINGERS 1,000 ML IV SCH (02:53)
[2022-03-06] MEDS: HYDROmorphone 1 MG/1 ML SYRINGE IV PRN ×6 (03:03→22:03)
[2022-03-06] MEDS: PIPERACILLIN/TAZOBACTAM 3,375 MG in SODIUM CHLORIDE 0.9% 100 ML IV SCH ×3 (04:26→19:58)
[2022-03-06 05:53] LABS: Basophils % 0.3 % (0.0-0.8); Eosinophils # 0.3 10*3/uL (0.0-0.87); Eosinophils % 2.8 % (0.00-10.9); Hematocrit 26.3 VOL% (42.0-52.0); Hemoglobin 8.1 GM/DL (14.0-18.0); Immature Granulocytes % 1.2 %; Immature Granulocytes Absolute 0.14 #; Lymphocytes # 1.7 10*3/uL (1.4-4.0); Lymphocytes % 14.8 % (21.2-54.2); Mean Corpuscular HGB Conc 30.8 GM/DL (32-36); Mean Corpuscular Volume 96.3 FL (87-102); Mean Platelet Volume 9.9 FL (9.6-12.0); Monocytes # 1.5 10*3/uL (0.11-0.8); Monocytes % 12.8 % (1.7-12.7); Neutrophils % 68.1 % (38.7-73.9); Platelet Count 384 T/CUMM (130-400); Red Blood Count 2.73 MC/CUMM (3.8-5.5); Red Cell Distribution Width 15.7 % (9.3-17.3); White Blood Count 11.7 T/CUMM (4-12)
[2022-03-06 06:09] LABS: Calcium 8.9 MG/DL (8.5-10.1); Osmolality,Calculated 285.3 MOS/KG (273-304)
[2022-03-06] MEDS: SACUBITRIL/VALSARTAN 49-51 MG TABLET PO SCH ×2 (09:59→20:05)
[2022-03-06] MEDS: ATORVASTATIN 40 MG TABLET PO SCH (09:59)
[2022-03-06] MEDS: PANTOPRAZOLE 40 MG TABLET PO SCH ×2 (09:59→20:06)
[2022-03-06] MEDS: carvediloL 3.125 MG TABLET PO SCH ×2 (10:00→20:06)
[2022-03-06] MEDS: FLUoxetine 20 MG CAPSULE PO SCH (10:00)
[2022-03-06] MEDS: INSULIN REGULAR 100 UNIT/ML SUBCUT SCH ×4 (10:00→22:09)
[2022-03-06] MEDS: GABAPENTIN 300 MG CAPSULE PO SCH ×3 (10:00→20:05)
[2022-03-06] MEDS: FERROUS SULFATE 325 MG TABLET PO SCH ×2 (11:00→22:03)
[2022-03-06] MEDS: SODIUM HYPOCHLORITE 0.25% IRRIG 473 ML BOTTLE TOP SCH (14:36)
[2022-03-06] MEDS: VANCOMYCIN INJ 1,250 MG in SODIUM CHLORIDE 0.9% 250 ML IV SCH (23:36)
[2022-03-07] MEDS: HYDROmorphone 1 MG/1 ML SYRINGE IV PRN ×3 (01:36→08:56)
[2022-03-07] MEDS: PIPERACILLIN/TAZOBACTAM 3,375 MG in SODIUM CHLORIDE 0.9% 100 ML IV SCH (05:31)
[2022-03-07 07:01] LABS: Basophils # 0.1 10*3/uL (0.0-0.2); Basophils % 0.4 % (0.0-0.8); Eosinophils # 0.4 10*3/uL (0.0-0.87); Hematocrit 26.7 VOL% (42.0-52.0); Hemoglobin 8.1 GM/DL (14.0-18.0); Immature Granulocytes Absolute 0.14 #; Lymphocytes # 2.2 10*3/uL (1.4-4.0); Lymphocytes % 15.7 % (21.2-54.2); Mean Corpuscular HGB Conc 30.3 GM/DL (32-36); Mean Corpuscular Volume 95.7 FL (87-102); Monocytes # 1.6 10*3/uL (0.11-0.8); Monocytes % 11.5 % (1.7-12.7); Neutrophils % 68.4 % (38.7-73.9); Platelet Count 436 T/CUMM (130-400); Red Blood Count 2.79 MC/CUMM (3.8-5.5); Red Cell Distribution Width 15.2 % (9.3-17.3); White Blood Count 13.8 T/CUMM (4-12)
[2022-03-07 07:22] LABS: Anisocytosis 1+; Macrocytosis Slight; Platelet Estimate Normal
[2022-03-07 07:32] LABS: Calcium 8.7 MG/DL (8.5-10.1); Osmolality,Calculated 282.4 MOS/KG (273-304); Potassium 3.7 MMOL/L (3.5-5.1)
[2022-03-07] MEDS ORDERED: carvediloL 3.125 MG TABLET PO SCH (08:00)
[2022-03-07] MEDS: GABAPENTIN 300 MG CAPSULE PO SCH (09:46)
[2022-03-07] MEDS: PANTOPRAZOLE 40 MG TABLET PO SCH (09:48)
[2022-03-07] MEDS: FLUoxetine 20 MG CAPSULE PO SCH (09:48)
[2022-03-07] MEDS: ATORVASTATIN 40 MG TABLET PO SCH (09:48)
[2022-03-07] MEDS: INSULIN REGULAR 100 UNIT/ML SUBCUT SCH (09:49)
[2022-03-07] MEDS: SACUBITRIL/VALSARTAN 49-51 MG TABLET PO SCH (09:52)
[2022-03-07] MEDS: FERROUS SULFATE 325 MG TABLET PO SCH (09:52)
[2022-03-07] MEDS ORDERED: HYDROmorphone 1 MG/1 ML SYRINGE IV PRN (10:03)
[2022-03-07 11:55] VITALS: BP 149/58
[2022-03-07] MEDS ORDERED: MAGNESIUM SULF RIDER 2 GM/50 ML PREMIX IV ONE (12:30)
[2022-03-07] MEDS: SODIUM HYPOCHLORITE 0.25% IRRIG 473 ML BOTTLE TOP SCH (12:32)
== END 2022-03-07 14:00 | disposition home health service (06) | DRG 239 ==
LOC: N.ED 16:43 → N.EDINP 22:39 → N.3E 03-02 14:31
PROVIDERS: ADMIT Student in an Organized Health Care Education/Training Program; ATTEND Student in an Organized Health Care Education/Training Program

== ENCOUNTER 2022-04-27 06:36 | Inpatient (IN) ==
[2022-04-21 11:37] LABS: Basophils % 0.4 % (0.0-0.8); Eosinophils # 0.4 10*3/uL (0.0-0.87); Eosinophils % 3.6 % (0.00-10.9); Hematocrit 30.5 VOL% (42.0-52.0); Hemoglobin 9.2 GM/DL (14.0-18.0); Immature Granulocytes % 0.5 %; Immature Granulocytes Absolute 0.05 #; Lymphocytes % 18.5 % (21.2-54.2); Mean Corpuscular HGB Conc 30.2 GM/DL (32-36); Mean Corpuscular Volume 106.6 FL (87-102); Mean Platelet Volume 9.2 FL (9.6-12.0); Monocytes # 0.9 10*3/uL (0.11-0.8); Monocytes % 8.6 % (1.7-12.7); Neutrophils % 68.4 % (38.7-73.9); Platelet Count 324 T/CUMM (130-400); Red Blood Count 2.86 MC/CUMM (3.8-5.5); Red Cell Distribution Width 16.3 % (9.3-17.3); White Blood Count 10.6 T/CUMM (4-12)
[2022-04-21 11:46] LABS: INR 0.9; PT Patient Result 10.5 SECS (10.1-12.1)
[2022-04-21 12:15] LABS: Albumin 2.8 G/DL (3.4-5.0); Bilirubin,Total 0.5 MG/DL (0.20-1.00); Calcium 8.2 MG/DL (8.5-10.1); Osmolality,Calculated 287.4 MOS/KG (273-304); Potassium 4.8 MMOL/L (3.5-5.1); Total Protein 5.7 G/DL (6.4-8.2)
[2022-04-27] MEDS ORDERED: HEPARIN/NACL 0.9% 2 UNITS/ML 1,000 UNIT/500 ML BAG IV ONE (07:03)
[2022-04-27] MEDS ORDERED: SODIUM CHLORIDE 0.9% 1,000 ML IV ONE (07:03)
[2022-04-27] MEDS ORDERED: NITROGLYCERIN DRIP 50 MG/250 ML BOTTLE IV ONE (07:03)
[2022-04-27] MEDS ORDERED: PHENYLEPHRINE DRIP 20 MG/250 ML PREMIX IV ONE (07:03)
[2022-04-27] MEDS ORDERED: DIAZEPAM 5 MG TABLET PO ONE (07:04)
[2022-04-27] MEDS: LACTATED RINGERS 1,000 ML IV SCH ×5 (08:06→21:42)
[2022-04-27] MEDS ORDERED: PHENYLEPHRINE 10 MG/1 ML VIAL IV ONE (08:14)
[2022-04-27] MEDS ORDERED: HEPARIN 5,000 UNIT/1 ML VIAL ONE (08:19)
[2022-04-27] MEDS ORDERED: TISSUE ADHESIVE 1 EACH APPLICATOR TOP ONE (08:19)
[2022-04-27] MEDS ORDERED: propofoL 200 MG/20 ML VIAL IV ONE (08:32)
[2022-04-27] MEDS ORDERED: fentaNYL 100 MCG/2 ML VIAL ONE (08:32)
[2022-04-27] MEDS ORDERED: ROCURONIUM 50 MG/5 ML VIAL IV ONE (08:32)
[2022-04-27] MEDS ORDERED: MIDAZOLAM 2 MG/2 ML VIAL ONE (08:32)
[2022-04-27] MEDS ORDERED: ETOMIDATE 40 MG/20 ML VIAL IV ONE (08:32)
[2022-04-27] MEDS ORDERED: EPINEPHrine 1 MG/ML VIAL ONE (08:33)
[2022-04-27] MEDS ORDERED: PROTAMINE SULFATE 50 MG/5 ML VIAL IV ONE (08:36)
[2022-04-27] MEDS ORDERED: HEPARIN 10,000 UNIT/10 ML VIAL ONE (08:36)
[2022-04-27] MEDS ORDERED: LIDOCAINE 2% 5 ML VIAL ONE (09:18)
[2022-04-27] MEDS ORDERED: ONDANSETRON 4 MG/2 ML VIAL ONE (09:19)
[2022-04-27] MEDS ORDERED: GLYCOPYRROLATE 0.4 MG/2 ML VIAL ONE (09:53)
[2022-04-27] MEDS ORDERED: NEOSTIGMINE 10 MG/10 ML VIAL ONE (09:53)
[2022-04-27] MEDS ORDERED: ePHEDrine 50 MG/ML VIAL ONE (10:06)
[2022-04-27] MEDS ORDERED: hydrALAZINE 20 MG/1 ML VIAL ONE (10:17)
[2022-04-27] MEDS ORDERED: NALOXONE 0.4 MG/ML VIAL IV PRN (10:18)
[2022-04-27] MEDS ORDERED: PHENYLEPHRINE DRIP 40 MG/250 ML PREMIX IV PRN (10:18)
[2022-04-27] MEDS ORDERED: NITROPRUSSIDE 100 MG in DEXTROSE 5% 250 ML IV PRN (10:18)
[2022-04-27] MEDS ORDERED: oxyCODONE/ACETAMINOPHEN 5-325 MG TABLET PO PRN ×2 (10:18)
[2022-04-27] MEDS ORDERED: PROMETHAZINE 25 MG/1 ML VIAL IM PRN (10:18)
[2022-04-27] MEDS ORDERED: ONDANSETRON 4 MG/2 ML VIAL IV PRN (10:18)
[2022-04-27] MEDS ORDERED: metOLazone 2.5 MG TABLET PO PRN (10:20)
[2022-04-27] MEDS: HYDROmorphone 1 MG/1 ML SYRINGE IV PRN ×5 (10:30→21:40)
[2022-04-27] MEDS ORDERED: LACTATED RINGERS 1,000 ML IV ONE (10:36)
[2022-04-27] MEDS ORDERED: SODIUM CHLORIDE 0.9% 100 ML IV ONE (10:36)
[2022-04-27] MEDS ORDERED: SEVOFLURANE 1 UNIT/15 MINUTE INH ONE (10:36)
[2022-04-27] MEDS ORDERED: PROMETHAZINE INJ 12.5 MG in SODIUM CHLORIDE 0.9% 50 ML IV PRN (11:00)
[2022-04-27 11:59] VITALS: BP 109/51
[2022-04-27] MEDS: carvediloL 3.125 MG TABLET PO SCH ×2 (15:28→20:14)
[2022-04-27] MEDS: METHOCARBAMOL 500 MG TABLET PO SCH ×2 (16:15→20:14)
[2022-04-27] MEDS: GABAPENTIN 300 MG CAPSULE PO SCH ×2 (16:15→20:21)
[2022-04-27] MEDS: SACUBITRIL/VALSARTAN 49-51 MG TABLET PO SCH (20:14)
[2022-04-27] MEDS: POTASSIUM CHLORIDE 20 MEQ TABLET PO SCH ×2 (20:15→20:27)
[2022-04-27] MEDS: PANTOPRAZOLE 40 MG TABLET PO SCH (20:22)
[2022-04-28] MEDS: HYDROmorphone 1 MG/1 ML SYRINGE IV PRN ×6 (00:15→17:45)
[2022-04-28] MEDS: LACTATED RINGERS 1,000 ML IV SCH ×3 (05:30→18:12)
[2022-04-28] MEDS ORDERED: KETOROLAC 30 MG/1 ML VIAL IV ONE (08:47)
[2022-04-28] MEDS ORDERED: SODIUM HYPOCHLORITE 0.25% IRRIG 473 ML BOTTLE TOP SCH (09:00)
[2022-04-28] MEDS ORDERED: ATORVASTATIN 40 MG TABLET PO SCH (09:00)
[2022-04-28] MEDS ORDERED: FUROSEMIDE 40 MG TABLET PO SCH (09:00)
[2022-04-28] MEDS ORDERED: MULTIVITAMIN (CENTRUM) TABLET PO SCH (09:00)
[2022-04-28] MEDS ORDERED: sitaGLIPtin 100 MG TABLET PO SCH (09:00)
[2022-04-28] MEDS ORDERED: ASPIRIN EC 81 MG TABLET PO SCH ×2 (09:00)
[2022-04-28] MEDS ORDERED: FLUoxetine 20 MG CAPSULE PO SCH (09:00)
[2022-04-28] MEDS ORDERED: SPIRONOLACTONE 25 MG TABLET PO SCH (09:00)
[2022-04-28] MEDS: METHOCARBAMOL 500 MG TABLET PO SCH ×2 (09:38→15:30)
[2022-04-28] MEDS: SACUBITRIL/VALSARTAN 49-51 MG TABLET PO SCH (09:38)
[2022-04-28] MEDS: PANTOPRAZOLE 40 MG TABLET PO SCH (09:39)
[2022-04-28] MEDS: GABAPENTIN 300 MG CAPSULE PO SCH ×2 (09:39→15:30)
[2022-04-28] MEDS: carvediloL 3.125 MG TABLET PO SCH (09:39)
[2022-04-28] MEDS: POTASSIUM CHLORIDE 20 MEQ TABLET PO SCH (09:40)
[2022-04-28] MEDS: KETOROLAC 10 MG TABLET PO SCH ×2 (12:03→17:45)
[2022-04-28] MEDS ORDERED: cloNIDine 0.1 MG TABLET PO SCH (14:52)
[2022-04-28] MEDS ORDERED: carvediloL 6.25 MG TABLET PO SCH (17:00)
[2022-04-28] MEDS ORDERED: RIVAROXABAN 2.5 MG TABLET PO SCH (21:00)
== END 2022-04-28 18:00 | disposition home or self-care (01) | DRG 38 ==
LOC: N.SDSINP 06:36 → N.ICU 11:45
PROVIDERS: ADMIT Surgery; ATTEND Surgery